=== PATIENT | male | born 2000 | race Caucasian/White ===

== ENCOUNTER 2022-02-22 19:40 | Emergency (ER) | payer MEDICAID ==
[~2022-02-22] VITALS: Ht 172.7 cm; Wt 59.0 kg
[2022-02-22] MEDS ORDERED: IBUPROFEN 600 MG TABLET ONE (20:56)
[2022-02-22] MEDS ORDERED: TDAP [DIPH/PERTUSSIS/TET] 0.5 ML VIAL IM ONE (20:56)
[2022-02-22] MEDS: IBUPROFEN 600 MG TABLET PO ONE (21:05)
[2022-02-22] MEDS: TDAP [DIPH/PERTUSSIS/TET] 0.5 ML VIAL IM ONE (21:05)
[2022-02-22 21:21] VITALS: BP 123/67
[2022-02-22] MEDS: LIDOCAINE HCL/PF 1% 30 ML VIAL TP ONE (21:32)
[2022-02-22] MEDS ORDERED: HYDR-4303 PO (21:53)
[2022-02-22] MEDS ORDERED: NAPR-1009 PO (22:21)
== END 2022-02-22 22:00 | disposition home or self-care (01) ==
LOC: ER 19:43
DX: S62.633A Displaced fracture of distal phalanx of left middle finger, initial encounter for closed fracture (principal); Z79.899 Other long term (current) drug therapy; W23.0XXA Caught, crushed, jammed, or pinched between moving objects, initial encounter; Y93.89 Activity, other specified; Y92.89 Other specified places as the place of occurrence of the external cause; Y99.8 Other external cause status
CPT/HCPCS: 99283; 12001; 73140; J3490; 90715